=== PATIENT | male | born 1960 | race Caucasian/White ===

== ENCOUNTER 2017-03-19 16:30 | Inpatient (IN) | payer MEDICARE ==
--- NOTE | ~2017-03-19 | CN ---
Consultation Report [facility] [address] [place]. [address] NAME: GLADIS LENZ : 58 STATUS : ADM IN [facility]#: [id number] AGE: 56 ADM/REG DATE : 03/19/17 MR#: [id number] REPORT SERV DATE: 03/20/17 DICTATED BY: MO MARES DATE: 03/19/17 REPORT STATUS : Draft TRANSCRIBED BY: MODL DATE: 03/19/17 DATE OF CONSULTATION: Mr. Gladis Lenz is a 56-year-old male, who is referred for followup of coronary artery disease. 1. PCP: Levy Fonseca M.D. 2. Vascular surgeon: Chris Montalvo M.D. 3. Cementing Machine Operator: Perry Villanueva M.D., F.C.C.P. 4. Mechanist: Unknown. HISTORY OF PRESENT ILLNESS: Mr. Lenz has had lower extremity edema for approximately three months and it has gradually crescendoed, finally bringing him into the emergency room where he was noted to have ischemic left lower extremity and is admitted for treatment by Dr. Montalvo. REVIEW OF SYSTEMS: Difficult to obtain as presently he is somewhat sedated from pain medication for the lower extremity. He said he has had no chest pain, but he is very inactive. He has had no recent PND, palpitations, syncope, or presyncope. Rest appears to be negative. PAST MEDICAL HISTORY: 1. Cirrhosis type C with portocaval shunt in the past. 2. COPD with cigarette smoking, just recently discontinued. 3. Peripheral vascular disease, status post above the ankle amputation of the right lower extremity. 4. Coronary artery disease with history of coronary bypass grafting at [facility]. 5. Hyperlipidemia, not on statin due to liver disease. SOCIAL HISTORY: He is disabled. His activity level is minimal. FAMILY HISTORY: Negative. PHYSICAL EXAMINATION: GENERAL: He is somewhat sedated due to pain medication. VITAL SIGNS: Blood pressure currently is 141/84. He has normal respiratory effort. His temperature is 98. LUNGS: His respiration is unlabored. Bilateral expansion of chest is seen. Expiratory wheezes are heard diffusely. HEART: Precordium is quiet. S1 and S2 are normal. ABDOMEN: Soft. EXTREMITIES: Deferred, but above knee amputation is noted on the right. LABORATORY EVALUATION: EKG and echo are pending. Troponin is less than 0.02. Potassium is adequate at 3.9. Renal function normal at 0.93. Consultation Report [facility] [address] [place]. [address] NAME: GLADIS LENZ : 58 STATUS : ADM IN PAT#: [id number] AGE: 56 ADM/REG DATE : 03/19/17 MR#: [id number] REPORT SERV DATE: 03/20/17 DICTATED BY: MO MARES DATE: 03/19/17 REPORT STATUS : Draft TRANSCRIBED BY: NICOLA DATE: 03/19/17 ASSESSMENT: At this time, we will begin a standard medical therapy starting with aspirin and beta carrol and await input from Dr. Montalvo as the attended treatment for the lower extremity ischemia. SHAYAN/NICOLA Mo Mares M.D. / [id number] CC: Marni Herrera M.D.
--- NOTE | ~2017-03-19 | OP ---
Record Of Operation [facility] [address] [place]. [address] NAME: GLADIS ELNZ : 58 STATUS : ADM IN PAT#: [id number] AGE: 56 ADM/REG DATE : 03/19/17 MR#: [id number] REPORT SERV DATE: 03/21/17 DICTATED BY: CHRIS MONTALVO DATE: 03/20/17 REPORT STATUS : Draft TRANSCRIBED BY: MODTracie DATE: 03/20/17 DATE OF PROCEDURE: 03/20/2017 PREPROCEDURE DIAGNOSES: Profound ischemia, left lower extremity with failed left femoral to tibial bypass, polytetrafluoroethylene. POSTOPERATIVE DIAGNOSES: Profound ischemia, left lower extremity with failed left femoral to tibial bypass, polytetrafluoroethylene. PROCEDURE PERFORMED: Revision of left femoral-tibial bypass with thrombectomy and a distal interposition reversed left lesser saphenous vein bypass to the mid peroneal artery. ANESTHESIA: General. COMPLICATIONS: None. INDICATION FOR PROCEDURE: Secondary to this a very pleasant 56-year-old gentleman status post a failed left femoral-tibial bypass with PTFE, with a known right above knee amputation, presenting for re-evaluation and possible limb salvage with revisionary surgery. Risks and benefits discussed including bleeding, clotting, a cardiovascular event. Consent was given. DETAILS OF PROCEDURE: The patient was brought to the operating room, placed in supine position, prepped and draped in routine sterile fashion with attention to the left leg. An incision was then made in the leg proceeding down through the skin, subcutaneous tissues from the knee to the mid calf. Dissection proceeded to the former graft which was noted to be twisted at the knee level. This had almost 90-degree twist within the graft material itself. The artery was then followed down to the what appeared to be the tibioperoneal trunk, which was then followed to the peroneal artery. There was significant amount of scarring atherosclerotic inflammatory process throughout this entire region leading to significant issues with venous bleeding requiring a tourniquet for approximately 45 minutes. The venous tributaries were controlled with ligation and cautery and multiple clips. The peroneal artery was then dissected free and this was a very pliable artery at the mid peroneal level. Next, dissection proceeded in the subcutaneous plane all way down to the lesser saphenous vein, which was found to be approximately 5 mm in diameter. This was then followed along the length of the calf and a 15-inch segment was then resected and brought on to the field for preparation for bypass. All branches were ligated individually and repaired. Next, the graft was then transected at the knee level, above the level of the kink. The distal graft was oversewn. A thrombectomy was then performed with a Duong catheter. Multiple passes of the inflation device was then brought down, and after multiple passes and additional heparin, the graft was then free with pulsatile flow. The vein bypass was then attached to the graft in apxb-ht-gdch fashion and then the vein was then brought down to the peroneal artery. The artery was opened for 12 mm and the vein bypass was then attached in end-to-side fashion with a prolene. Flow was re-established. There was excellent Doppler signals into the foot with a significant improvement of perfusion to the foot. This bleeding was then controlled with Surgicel and Surgiflo Record Of Operation [address] [address] NAME: GLADIS LENZ : 58 STATUS : ADM IN [facility]#: [id number] AGE: 56 ADM/REG DATE : 03/19/17 MR#: [id number] REPORT SERV DATE: 03/21/17 DICTATED BY: CHRIS MONTALVO DATE: 03/20/17 REPORT STATUS : Draft TRANSCRIBED BY: NICOLA DATE: 03/20/17 thrombin medication. The deep layers were then closed with Vicryl and then mitchell for the skin secondary to the ooze and bleeding of the case. Dressings were applied. The patient had excellent perfusion enough to the foot at the end of the procedure. CL/NICOLA Chris Montalvo M.D. / [id number] CC: Chris Montalvo M.D.
--- NOTE | ~2017-03-19 | IDS ---
Interim Discharge Summary [facility] [address] [place]. [address] NAME: GLADIS LENZ : 58 STATUS : ADM IN PAT#: [id number] AGE: 56 ADM/REG DATE : 03/19/17 MR#: [id number] REPORT SERV DATE: 03/23/17 DICTATED BY: JAY BRICEÑO DATE: 03/23/17 REPORT STATUS : Draft TRANSCRIBED BY: MODL DATE: 03/23/17 ADMISSION DATE: 03/19/2017 DISCHARGE DATE: REASON FOR ADMISSION: This is a 56-year-old male who had presented with a painful left ischemic leg and was admitted for that left ischemic leg and had a history of previous femoral-popliteal bypass as well as a right wflij-nda-arzh amputation for his related peripheral arterial disease. INTERIM DISCHARGE DIAGNOSES: 1. Left ischemic leg, status post fem-tib revision. 2. Peripheral arterial disease. 3. Coronary artery disease with a history of a CABG. 4. Hepatitis C. 5. Chronic obstructive pulmonary disease. 6. Acute blood loss anemia, status post vascular procedure. 7. Thrombocytopenia. HOSPITAL COURSE: The patient was admitted for left ischemic leg. Left ischemic leg. The patient had a consult to Vascular Surgery. Dr. Montalvo saw the patient, and he would perform a revision of the left femoral-tibial bypass with thrombectomy and a distal interposition reverse left lesser saphenous vein bypass to the mid peroneal artery. The patient went to ICU after procedure. Initially, did well after procedure and did experience some acute blood loss anemia after procedure. His hemoglobin preop was 12.3, and it would drop to 7.3 postop. The patient received 2 units of packed red blood cells and today his hemoglobin is 9.0. The patient is dependent on narcotic pain medicine, and we have been weaning him off IV Dilaudid to oral Percocet. The patient was moved out to telemetry floor today. Vital signs are stable. We will continue q.12 hours H and H's for the next 48 hours. Of note, also patient had postop thrombocytopenia. On admission, platelets were 130,000. After procedure, they dropped to 65,000 and today are 68,000. There is a HIT panel pending. CURRENT MEDICATIONS: 1. Aspirin 325 mg p.o. daily. 2. Plavix 75 mg p.o. daily. 3. Gabapentin 600 mg p.o. q.6 hours. 4. DuoNeb 3 mL inhaled q.6 hours. 5. Metoprolol 12.5 mg p.o. b.i.d. 6. Protonix 40 mg p.o. daily. 7. OxyContin 10 mg p.o. b.i.d. CURRENT PLAN: The patient was seen by Physical Therapy today and was determined to not need [facility] rehab. They deemed him appropriate for home with home health. The patient will need monitoring of his H and H for at least 24 hours more and his platelet levels. The patient's care to be assumed by Dr. Rivers this week. Interim Discharge Summary [address] [place]. [address] NAME: GLADIS LENZ : 58 STATUS : ADM IN [facility]#: [id number] AGE: 56 ADM/REG DATE : 03/19/17 MR#: [id number] REPORT SERV DATE: 03/23/17 DICTATED BY: JAY BRICEÑO DATE: 03/23/17 REPORT STATUS : Draft TRANSCRIBED BY: NICOLA DATE: 03/23/17 TDR/NICOLA Jay Briceño APN / [id number] CC: Marni Bajwa M.D. Christopher Lesar, M.D.
--- NOTE | ~2017-03-19 | DS ---
Discharge Summary [facility] [address] [place]. [address] NAME: GLADIS LENZ : 58 STATUS : DIS IN PAT#: [id number] AGE: 56 ADM/REG DATE : 03/19/17 MR#: [id number] REPORT SERV DATE: 03/27/17 DICTATED BY: BETSEY SANCHEZ DATE: 03/25/17 REPORT STATUS : Draft TRANSCRIBED BY: MODL DATE: 03/25/17 ADMISSION DATE: 03/19/2017 DISCHARGE DATE: DIAGNOSES OF DISCHARGE: 1. Left ischemic leg, status post femoral-tibial revision that has been performed on 03/21/[address] Chris Montalvo. 2. Peripheral arterial disease. 3. History of coronary artery disease with prior coronary artery bypass graft. 4. History of hepatitis C. 5. Chronic obstructive pulmonary disease. 6. Acute blood loss anemia, status post two units of packed red blood cells post vascular procedure, stable. 7. Chronic thrombocytopenia. CONSULTANTS ON THE CASE: Dr. Chris Montalvo, Vascular and Dr. Mo Mares, Cardiology. PROCEDURES DONE DURING THIS HOSPITALIZATION: Include revision of the left femoral-tibial bypass with thrombectomy and a distal interposition reverse of the left lesser saphenous vein bypass to the mid peroneal artery. Other test done during hospitalization include a 2D echo on 03/20/2017, showing left ventricular systolic function of 54, mild diastolic dysfunction with mild left atrial dilation, intact right ventricular systolic function, no significant valvular dysfunction that could be identified. Chest x-ray, portable, on 03/12/2017, show a normal chest x-ray. No consolidation. Duplex arterial ultrasound on 03/19/2017, has shown occluded left femoral-popliteal bypass graft, normal inflow involving the left common femoral artery. HOSPITAL COURSE: This is a very pleasant 56-year-old gentleman, patient of Dr. Levy Fonseca, his primary care provider, who has been presented to [facility] with painful left ischemic leg. For further details, please see history and physical exam of Dr. Ceasar Yañez. The patient has been admitted to Hospitalist Service with an ischemic left leg. He does have a prior history of femoral-popliteal bypass as well as a right qenst-uus-tgat amputation due to his peripheral vascular disease. The patient was seen by Dr. Montalvo, who performed a revision of the left femoral-tibial bypass with thrombectomy and reverse of the left lesser saphenous vein bypass to the mid peroneal artery. The patient went to the ICU after the procedure. He has been transferred to monitored bed. He did experience some acute blood loss anemia. He has been transfused two units of packed red blood cells, and his H and H remained stable. He had some thrombocytopenia postprocedure that has been improved, and HIT panel ordered on 03/22/2017 has been negative. He has been weaned off the IV medication and changed to oral medication by the vascular surgeon, and started to work with Physical Therapy and recommendation was to go home with Home Health, Home PT as well as Wound Care. On 03/25/2017, the patient has been ready for discharge from Vascular standpoint. It is important to note that the patient has been seen during this hospitalization also by Cardiology due to history of coronary artery disease. He has been cleared from Cardiology standpoint, and he has been placed on low doses of beta-carrol, but he could not tolerate due to the blood pressure. So, again on 03/25/2017, the patient has Discharge Summary [facility] [id number] [facility] [place]. [address] NAME: GLADIS LENZ : 58 STATUS : DIS IN PAT#: [id number] AGE: 56 ADM/REG DATE : 03/19/17 MR#: [id number] REPORT SERV DATE: 03/27/17 DICTATED BY: BETSEY SANCHEZ DATE: 03/25/17 REPORT STATUS : Draft TRANSCRIBED BY: NICOLA DATE: 03/25/17 been ready for discharge. MEDICATIONS AT DISCHARGE: Include Plavix 75 mg p.o. daily, gabapentin 600 every six hours, also Prilosec 40 mg p.o. daily, Roxicodone 10 mg p.o. b.i.d., also Eliquis 5 mg p.o. b.i.d., and Percocet 5/325 one tablet p.o. q.4 to 6 hours p.r.n. pain. The patient has been advised to follow up with his primary care provider, Dr. Levy Fonseca in one week after discharge as well as follow up with Dr. Montalvo, Vascular in two to four weeks after discharge. The patient will go home with Home Health as well as PT and Wound Care. This has been discussed extensively with the patient. All the questions have been answered in full. ADDENDUM The patient has been re-evaluated by PT during this hospitalization and recommendation was for the patient to go to inpatient rehab. The patient has been evaluated by [facility] and approved to be transferred to inpatient rehab at [facility] on 03/26/2017. The patient has been advised to follow up with his primary care provider in one week after discharge as well as Dr. Montalvo, the patient's vascular doctor in two to four weeks after discharge. The patient is going to be discharged to [facility]. CF/MODL Betsey Sanchez M.D. / [id number] / [id number] CC: Marni Argueta M.D. Christopher Lesar, M.D.
--- NOTE | ~2017-03-19 | HP ---
History And Physical [address] [place]. [address] NAME: GLADIS LENZ : 58 STATUS : ADM IN [facility]#: [id number] AGE: 56 ADM/REG DATE : 03/19/17 MR#: [id number] REPORT SERV DATE: 03/19/17 DICTATED BY: CHINMAY AARON DATE: 03/19/17 REPORT STATUS : Draft TRANSCRIBED BY: MODL DATE: 03/19/17 DATE OF ADMISSION: 03/19/2017 CHIEF COMPLAINT: A 56-year-old male presenting with painful left ischemic leg. HISTORY OF PRESENT ILLNESS: The patient's history was obtained through careful interview with the patient, coupled with review of [facility] and [facility] medical records. For about a year now, the patient has been having progressive left foot pain and discoloration, but over the last few weeks, it has become so severe that he cannot even bear weight on that leg. He describes left foot pain radiating up into the ankle. He describes it as many different kinds of pain, burning, throbbing, crushing, "twitching" in quality, 10/10 severity, almost constantly. He has had no chest pain. No shortness of breath. No fevers or chills. No reflux symptoms. He has had left leg arterial insufficiency ulcers for about a year and a half that will not heal. REVIEW OF SYSTEMS: Otherwise, a 14-point review of systems was obtained and was negative. PAST MEDICAL HISTORY: 1. Hepatitis C cirrhosis. 2. Peripheral arterial disease, status post right vjqzn-dno-wddc amputation; history of femoropopliteal bypass surgery. 3. GI bleed with portal gastropathy and esophageal varices, seen by Dr. Ballard. 4. Splenomegaly. 5. COPD. 6. Anemia. 7. Coronary artery disease, status post CABG. 8. Cholelithiasis. PAST SURGICAL HISTORY: 1. Femoropopliteal bypass surgery. 2. Right xeknq-hhz-cdco amputation for peripheral arterial disease. 3. Hernia surgery. 4. Right finger amputation. 5. CABG around 2007. ALLERGIES: IBUPROFEN. SOCIAL HISTORY: Quit smoking about two months ago. Quit drinking beer about 10 years ago. History And Physical [address] [address] NAME: GLADIS LENZ : 58 STATUS : ADM IN PAT#: [id number] AGE: 56 ADM/REG DATE : 03/19/17 MR#: [id number] REPORT SERV DATE: 03/19/17 DICTATED BY: CHINMAY AARON DATE: 03/19/17 REPORT STATUS : Draft TRANSCRIBED BY: NICOLA DATE: 03/19/17 He lives with his sister. He is on disability. He is , lives in [place], [place]. He has one child, who lives locally. FAMILY HISTORY: Heart disease and cancer. CURRENT MEDICATIONS: Include Plavix 75 mg p.o. daily, Neurontin 600 mg p.o. four times a day, Prilosec 40 mg p.o. daily, and Roxicodone 10 mg p.o. b.i.d. scheduled. PHYSICAL EXAMINATION: VITAL SIGNS: Temperature 98.0, pulse 115, blood pressure 141/84, respiratory rate 20, and O2 saturation 95% on room air. GENERAL: A pleasant, cooperative male, but he describes distress and discomfort from his left leg pain. HEENT: Pupils are equal, round, and reactive to light. No conjunctival pallor. No scleral icterus. Nares are patent. Oropharynx is clear of obstruction. Moist mucous membranes. NECK: Trachea midline. No thyromegaly. LYMPH: No cervical lymphadenopathy. No supraclavicular lymphadenopathy. No inguinal lymphadenopathy. RESPIRATORY: Clear to auscultation at bases. No wheezes, rales, or rhonchi. Normal respiratory effort. CARDIOVASCULAR: Tachycardic. Regular rhythm. No murmurs, rubs, or gallops. No current extremity edema is appreciated. ABDOMEN: Soft, nontender, and nondistended. Normal bowel sounds auscultated throughout. No hepatosplenomegaly. DERMATOLOGICAL: The patient's left lower extremity shows cyanotic changes, a cold limb that is excruciatingly painful to any kind of palpation as the patient describes it. I do not appreciate any dorsal foot pulse. There are also arterial insufficiency ulcers on the dorsum of the patient's left foot along the gustafson, but without any surrounding erythema, heat, swelling, tenderness, or purulent drainage. PSYCHIATRIC: Flat affect, irritable, and discouraged mood. Alert and oriented x3. LABORATORY DATA: White blood cell count 4.3, hemoglobin 12, hematocrit 40, and platelets 130. Sodium 142, potassium 3.9, chloride 104, bicarb 33, BUN 14, creatinine 0.93, glucose 110, and CPK 126. Troponin negative. Alkaline phosphatase 180 and lactic acid 1.4. STUDIES: An arterial Doppler ultrasound of left lower extremity shows totally occluded femoropopliteal bypass and occluded arteries throughout the leg. ASSESSMENT AND PLAN: 1. Left leg ischemia. Place on heparin drip IV. Consult Dr. Montalvo, Vascular Surgeon. 2. Coronary artery disease, history of coronary artery bypass graft around 2007. No current chest pain. No shortness of breath. Check a nuclear cardiac stress test. Check an echocardiogram. Obtain a Cardiology consult to question possible further cardiac clearance for surgery? 3. Hepatitis C cirrhosis. 4. Chronic obstructive pulmonary disease. Quit smoking about two months ago. Place on Duo nebulizers. History And Physical [address] [address] NAME: GLADIS LENZ : 58 STATUS : ADM IN [facility]#: [id number] AGE: 56 ADM/REG DATE : 03/19/17 MR#: [id number] REPORT SERV DATE: 03/19/17 DICTATED BY: CHINMAY AARON DATE: 03/19/17 REPORT STATUS : Draft TRANSCRIBED BY: NICOLA DATE: 03/19/17 KPL/NICOLA Chinmay Aaron M.D. / [id number] CC: Marni Herrera M.D. Christopher Lesar, M.D.
[2017-03-19 16:22] LABS: BASOPHILS 0.2 %; BASOPHILS ABSOLUTE 0.01 10/3/uL (0.0-0.16); EOSINOPHILS 1.6 %; EOSINOPHILS ABSOLUTE 0.07 10/3/uL (0.0-0.53); ER CBC TAT 0 Hrs 12 Mins; HEMATOCRIT 39.7 % (40.0-51.0); HEMOGLOBIN 12.3 g/dL (13.6-17.8); LYMPHOCYTES 18.3 %; LYMPHOCYTES ABSOLUTE 0.78 10/3/uL (0.67-4.30); MANUAL DIFF NO %; MEAN CORPUSCULAR HEMOGLOB 24.5 pg (26.0-34.0); MEAN CORPUSCULAR VOLUME 79.1 fL (80-100); MEAN PLATELET VOLUME 10.4 fL (9.2-13.0); MONOCYTES 10.1 %; MONOCYTES ABSOLUTE 0.43 10/3/uL (0.21-1.20); NEUTROPHILS 69.8 %; NEUTROPHILS ABSOLUTE 2.97 10/3/uL (2.02-8.40); PLATELET COUNT 130 10/3/uL (150-400); RBC DISTRIBUTION WIDTH 17.5 % (12.0-16.0); RED CELL COUNT 5.02 10/6/uL (4.7-6.1); WHITE BLOOD CELLS 4.3 10/3/uL (4.5-10.5)
[~2017-03-19 16:30] MED LIST: ASABAYER PO; COUMADIN7.5 MG PO; NEUR800 PO; OXYCOD PO; OXYCON10; PCET PO; PLAVIX PO; PRILOSEC40 MG
[2017-03-19 16:31] LABS: ALBUMIN 3.8 G/DL (3.5-5.0); BUN (BLOOD UREA NITROGEN) 17 MG/DL (6-23); CALCIUM, SERUM 9.6 MG/DL (8.5-10.4); CHLORIDE, SERUM 104 MMOL/L (96-112); CO2 (CARBON DIOXIDE) 33 MMOL/L (24-34); CREATININE 0.93 MG/DL (0.70-1.30); GFR AFRICAN AMERICAN 105 ML/MIN (>=60); GFR NON AFRICAN AMERICAN 91 ML/MIN (>=60); GLUCOSE, SERUM 110 MG/DL (60-99); POTASSIUM, SERUM 3.9 MMOL/L (3.5-5.3); SGOT(AST) 20 U/L (5-40); SGPT(ALT) 15 U/L (5-65); SODIUM, SERUM 142 MMOL/L (135-148); TOTAL BILIRUBIN 0.5 MG/DL (0-1.2); TOTAL PROTEIN 8.8 G/DL (6.0-8.5); TROPONIN I <0.02 NG/ML (<0.05)
[2017-03-19 16:32] LABS: A/G RATIO 0.8 (0.7-1.9); ALKALINE PHOSPHATASE 180 U/L (45-117)
[2017-03-19 16:55] LABS: CPK 126 U/L (0-200)
[2017-03-19 17:08] LABS: MICROCYTES 1+ (5-10/OIF) (0-5/OIF); PLATELET ESTIMATE SLT DEC (ADEQUATE)
[2017-03-19] MEDS ORDERED: PRILOSEC40 MG PO (18:15)
[2017-03-19] MEDS ORDERED: NEUR600 PO (18:15)
[2017-03-19] MEDS ORDERED: PLAVIX PO (18:15)
[2017-03-19] MEDS ORDERED: OXYCOD PO (18:17)
[2017-03-20 05:38] LABS: BASOPHILS 0.3 %; BASOPHILS ABSOLUTE 0.01 10/3/uL (0.0-0.16); EOSINOPHILS 1.5 %; EOSINOPHILS ABSOLUTE 0.05 10/3/uL (0.0-0.53); HEMOGLOBIN 10.8 g/dL (13.6-17.8); INTERNATIONAL NORMAL RATI 1.2 UNITS (-); LYMPHOCYTES 35.1 %; LYMPHOCYTES ABSOLUTE 1.17 10/3/uL (0.67-4.30); MEAN CORPUS HGB CONC 30.4 g/dL (32.0-36.0); MEAN CORPUSCULAR HEMOGLOB 24.5 pg (26.0-34.0); MEAN CORPUSCULAR VOLUME 80.7 fL (80-100); MEAN PLATELET VOLUME 10.9 fL (9.2-13.0); MONOCYTES 12.6 %; MONOCYTES ABSOLUTE 0.42 10/3/uL (0.21-1.20); NEUTROPHILS 50.5 %; NEUTROPHILS ABSOLUTE 1.68 10/3/uL (2.02-8.40); PLATELET COUNT 124 10/3/uL (150-400); PROTIME (NOT ORD) 15.1 SEC (12.0-14.5); RBC DISTRIBUTION WIDTH 17.5 % (12.0-16.0); WHITE BLOOD CELLS 3.3 10/3/uL (4.5-10.5)
[2017-03-20 05:40] LABS: HEMATOCRIT 35.5 % (40.0-51.0); MANUAL DIFF NO %
[2017-03-20 05:44] LABS: A/G RATIO 0.7 (0.7-1.9); ALBUMIN 3.1 G/DL (3.5-5.0); BUN (BLOOD UREA NITROGEN) 15 MG/DL (6-23); CALCIUM, SERUM 8.9 MG/DL (8.5-10.4); CHLORIDE, SERUM 110 MMOL/L (96-112); CREATININE 0.79 MG/DL (0.70-1.30); GFR AFRICAN AMERICAN 116 ML/MIN (>=60); GFR NON AFRICAN AMERICAN 100 ML/MIN (>=60); GLOBULIN 4.2 G/DL (2.5-4.1); GLUCOSE, SERUM 95 MG/DL (60-99); SGOT(AST) 21 U/L (5-40); SGPT(ALT) 16 U/L (5-65); SODIUM, SERUM 146 MMOL/L (135-148); TOTAL BILIRUBIN 0.3 MG/DL (0-1.2); TOTAL PROTEIN 7.3 G/DL (6.0-8.5); TROPONIN I <0.02 NG/ML (<0.05); ULTRASENSITIVE TSH 0.542 MCIU/ML (0.358-3.740)
[2017-03-20 05:45] LABS: PARTIAL THROMBO TIME 145.8 SEC (22.5-37.2)
[2017-03-20 06:16] LABS: ALKALINE PHOSPHATASE 154 U/L (45-117); CO2 (CARBON DIOXIDE) 28 MMOL/L (24-34)
[2017-03-20 06:27] LABS: ANISOCYTOSIS 1+ (5-10/OIF) (0-5/OIF); PLATELET ESTIMATE SLT DEC (ADEQUATE); RBC MORPHOLOGY ABN (NORMAL)
[2017-03-20 06:48] LABS: PROCALCITONIN 0.11 ng/mL (<0.5)
[2017-03-20 21:03] LABS: BASOPHILS 0.4 %; BASOPHILS ABSOLUTE 0.02 10/3/uL (0.0-0.16); EOSINOPHILS 1.6 %; EOSINOPHILS ABSOLUTE 0.08 10/3/uL (0.0-0.53); HEMOGLOBIN 9.5 g/dL (13.6-17.8); IMMATURE GRANULOCYTES 0.2 %; IMMATURE GRANULOCYTES ABSOLUTE 0.01 10/3/uL (0.0-0.11); LYMPHOCYTES ABSOLUTE 0.51 10/3/uL (0.67-4.30); MEAN CORPUSCULAR HEMOGLOB 25.5 pg (26.0-34.0); MEAN CORPUSCULAR VOLUME 79.8 fL (80-100); MEAN PLATELET VOLUME 9.9 fL (9.2-13.0); MONOCYTES 10.9 %; MONOCYTES ABSOLUTE 0.56 10/3/uL (0.21-1.20); NEUTROPHILS 76.9 %; NEUTROPHILS ABSOLUTE 3.94 10/3/uL (2.02-8.40); PLATELET COUNT 109 10/3/uL (150-400); RBC DISTRIBUTION WIDTH 16.1 % (12.0-16.0); RED CELL COUNT 3.72 10/6/uL (4.7-6.1)
[2017-03-20 21:04] LABS: HEMATOCRIT 29.7 % (40.0-51.0); MANUAL DIFF NO %; WHITE BLOOD CELLS 5.1 10/3/uL (4.5-10.5)
[2017-03-20 21:17] LABS: A/G RATIO 0.8 (0.7-1.9); ALBUMIN 2.6 G/DL (3.5-5.0); ALKALINE PHOSPHATASE 119 U/L (45-117); BUN (BLOOD UREA NITROGEN) 13 MG/DL (6-23); CALCIUM, SERUM 8.9 MG/DL (8.5-10.4); CHLORIDE, SERUM 109 MMOL/L (96-112); CO2 (CARBON DIOXIDE) 27 MMOL/L (24-34); CREATININE 0.68 MG/DL (0.70-1.30); GFR AFRICAN AMERICAN 123 ML/MIN (>=60); GFR NON AFRICAN AMERICAN 106 ML/MIN (>=60); GLOBULIN 3.1 G/DL (2.5-4.1); GLUCOSE, SERUM 99 MG/DL (60-99); PHOSPHORUS, SERUM 3.6 MG/DL (2.5-4.5); POTASSIUM, SERUM 3.9 MMOL/L (3.5-5.3); SGOT(AST) 16 U/L (5-40); SGPT(ALT) 10 U/L (5-65); SODIUM, SERUM 142 MMOL/L (135-148); TOTAL BILIRUBIN 0.6 MG/DL (0-1.2); TOTAL PROTEIN 5.7 G/DL (6.0-8.5)
[2017-03-21 04:02] LABS: BASOPHILS 0.1 %; BASOPHILS ABSOLUTE 0.01 10/3/uL (0.0-0.16); EOSINOPHILS 0.1 %; EOSINOPHILS ABSOLUTE 0.01 10/3/uL (0.0-0.53); HEMATOCRIT 29.4 % (40.0-51.0); HEMOGLOBIN 9.4 g/dL (13.6-17.8); IMMATURE GRANULOCYTES 0.3 %; IMMATURE GRANULOCYTES ABSOLUTE 0.02 10/3/uL (0.0-0.11); LYMPHOCYTES 5.2 %; LYMPHOCYTES ABSOLUTE 0.36 10/3/uL (0.67-4.30); MANUAL DIFF NO %; MEAN CORPUSCULAR HEMOGLOB 25.5 pg (26.0-34.0); MEAN CORPUSCULAR VOLUME 79.9 fL (80-100); MEAN PLATELET VOLUME 10.8 fL (9.2-13.0); MONOCYTES 9.2 %; MONOCYTES ABSOLUTE 0.64 10/3/uL (0.21-1.20); NEUTROPHILS 85.1 %; NEUTROPHILS ABSOLUTE 5.92 10/3/uL (2.02-8.40); PLATELET COUNT 124 10/3/uL (150-400); RBC DISTRIBUTION WIDTH 16.2 % (12.0-16.0); RED CELL COUNT 3.68 10/6/uL (4.7-6.1)
[2017-03-21 04:09] LABS: BUN (BLOOD UREA NITROGEN) 12 MG/DL (6-23); CALCIUM, SERUM 8.6 MG/DL (8.5-10.4); CHLORIDE, SERUM 109 MMOL/L (96-112); CO2 (CARBON DIOXIDE) 27 MMOL/L (24-34); CREATININE 0.79 MG/DL (0.70-1.30); GFR AFRICAN AMERICAN 116 ML/MIN (>=60); GFR NON AFRICAN AMERICAN 100 ML/MIN (>=60); POTASSIUM, SERUM 4.3 MMOL/L (3.5-5.3); SODIUM, SERUM 144 MMOL/L (135-148)
[2017-03-21 04:10] LABS: GLUCOSE, SERUM 119 MG/DL (60-99)
[2017-03-22 03:36] LABS: BASOPHILS 0.4 %; BASOPHILS ABSOLUTE 0.02 10/3/uL (0.0-0.16); EOSINOPHILS ABSOLUTE 0.05 10/3/uL (0.0-0.53); IMMATURE GRANULOCYTES 0.8 %; IMMATURE GRANULOCYTES ABSOLUTE 0.04 10/3/uL (0.0-0.11); LYMPHOCYTES 13.3 %; LYMPHOCYTES ABSOLUTE 0.69 10/3/uL (0.67-4.30); MEAN CORPUS HGB CONC 31.7 g/dL (32.0-36.0); MEAN CORPUSCULAR HEMOGLOB 25.3 pg (26.0-34.0); MEAN CORPUSCULAR VOLUME 79.6 fL (80-100); MEAN PLATELET VOLUME 10.3 fL (9.2-13.0); MONOCYTES 14.9 %; MONOCYTES ABSOLUTE 0.77 10/3/uL (0.21-1.20); NEUTROPHILS 69.6 %; NEUTROPHILS ABSOLUTE 3.61 10/3/uL (2.02-8.40); RBC DISTRIBUTION WIDTH 16.8 % (12.0-16.0); WHITE BLOOD CELLS 5.2 10/3/uL (4.5-10.5)
[2017-03-22 03:37] LABS: HEMOGLOBIN 7.3 g/dL (13.6-17.8); RED CELL COUNT 2.89 10/6/uL (4.7-6.1)
[2017-03-22 03:38] LABS: MANUAL DIFF NO %; PLATELET COUNT 65 10/3/uL (150-400)
[2017-03-22 03:53] LABS: BUN (BLOOD UREA NITROGEN) 9 MG/DL (6-23); CALCIUM, SERUM 8.4 MG/DL (8.5-10.4); CHLORIDE, SERUM 108 MMOL/L (96-112); CO2 (CARBON DIOXIDE) 27 MMOL/L (24-34); CREATININE 0.71 MG/DL (0.70-1.30); GFR AFRICAN AMERICAN 121 ML/MIN (>=60); GFR NON AFRICAN AMERICAN 104 ML/MIN (>=60); GLUCOSE, SERUM 135 MG/DL (60-99); POTASSIUM, SERUM 4.1 MMOL/L (3.5-5.3); SODIUM, SERUM 143 MMOL/L (135-148)
[2017-03-22 04:00] LABS: ANISOCYTOSIS 1+ (5-10/OIF) (0-5/OIF); PLATELET ESTIMATE DEC (ADEQUATE); RBC MORPHOLOGY ABN (NORMAL)
[2017-03-22 18:20] LABS: BASOPHILS 0.2 %; BASOPHILS ABSOLUTE 0.01 10/3/uL (0.0-0.16); EOSINOPHILS 2.3 %; EOSINOPHILS ABSOLUTE 0.14 10/3/uL (0.0-0.53); IMMATURE GRANULOCYTES 0.3 %; IMMATURE GRANULOCYTES ABSOLUTE 0.02 10/3/uL (0.0-0.11); LYMPHOCYTES 15.5 %; LYMPHOCYTES ABSOLUTE 0.96 10/3/uL (0.67-4.30); MEAN CORPUS HGB CONC 32.3 g/dL (32.0-36.0); MEAN CORPUSCULAR HEMOGLOB 26.8 pg (26.0-34.0); MEAN PLATELET VOLUME 10.5 fL (9.2-13.0); MONOCYTES 12.7 %; MONOCYTES ABSOLUTE 0.79 10/3/uL (0.21-1.20); NEUTROPHILS ABSOLUTE 4.29 10/3/uL (2.02-8.40); PLATELET COUNT 66 10/3/uL (150-400); WHITE BLOOD CELLS 6.2 10/3/uL (4.5-10.5)
[2017-03-22 18:21] LABS: MANUAL DIFF NO %; MEAN CORPUSCULAR VOLUME 83.1 fL (80-100); RED CELL COUNT 3.73 10/6/uL (4.7-6.1)
[2017-03-22 18:32] LABS: BUN (BLOOD UREA NITROGEN) 10 MG/DL (6-23); CALCIUM, SERUM 8.8 MG/DL (8.5-10.4); CHLORIDE, SERUM 103 MMOL/L (96-112); CO2 (CARBON DIOXIDE) 29 MMOL/L (24-34); GFR AFRICAN AMERICAN 115 ML/MIN (>=60); GFR NON AFRICAN AMERICAN 99 ML/MIN (>=60); GLUCOSE, SERUM 138 MG/DL (60-99); POTASSIUM, SERUM 4.3 MMOL/L (3.5-5.3); SODIUM, SERUM 139 MMOL/L (135-148)
[2017-03-22 18:56] LABS: ANISOCYTOSIS 1+ (5-10/OIF) (0-5/OIF); PLATELET ESTIMATE DEC (ADEQUATE)
[2017-03-22 19:00] LABS: BURR CELLS 1+ (3-10/OIF) (0-2/OIF); POLYCHROMASIA 1+ (2-5/OIF) (0-1/OIF); TEARDROP SHAPED RBCS FEW (3-10/OIF)
[2017-03-22 19:01] LABS: HELMET CELLS FEW (3-10/OIF)
[2017-03-22 19:02] LABS: OVALOCYTES 1+ (3-10/OIF) (0-2/OIF)
[2017-03-23 03:49] LABS: BASOPHILS 0.4 %; BASOPHILS ABSOLUTE 0.02 10/3/uL (0.0-0.16); EOSINOPHILS 3.7 %; EOSINOPHILS ABSOLUTE 0.17 10/3/uL (0.0-0.53); HEMATOCRIT 27.3 % (40.0-51.0); IMMATURE GRANULOCYTES 0.4 %; IMMATURE GRANULOCYTES ABSOLUTE 0.02 10/3/uL (0.0-0.11); LYMPHOCYTES 20.3 %; LYMPHOCYTES ABSOLUTE 0.94 10/3/uL (0.67-4.30); MEAN CORPUSCULAR HEMOGLOB 27.2 pg (26.0-34.0); MEAN CORPUSCULAR VOLUME 82.5 fL (80-100); MEAN PLATELET VOLUME 10.8 fL (9.2-13.0); MONOCYTES 12.8 %; MONOCYTES ABSOLUTE 0.59 10/3/uL (0.21-1.20); NEUTROPHILS 62.4 %; NEUTROPHILS ABSOLUTE 2.88 10/3/uL (2.02-8.40); PLATELET COUNT 68 10/3/uL (150-400); RBC DISTRIBUTION WIDTH 16.7 % (12.0-16.0); RED CELL COUNT 3.31 10/6/uL (4.7-6.1); WHITE BLOOD CELLS 4.6 10/3/uL (4.5-10.5)
[2017-03-23 03:50] LABS: MANUAL DIFF NO %
[2017-03-23 03:53] LABS: FIBRINOGEN 440 MG/DL (230-462); INTERNATIONAL NORMAL RATI 1.3 UNITS (-); PARTIAL THROMBO TIME 34.1 SEC (22.5-37.2); PROTIME (NOT ORD) 16.5 SEC (12.0-14.5)
[2017-03-23 03:55] LABS: D-DIMER QUANTITATIVE 2.48 ug/mLFEU (< 0.50)
[2017-03-23 04:04] LABS: ALBUMIN 2.8 G/DL (3.5-5.0); BUN (BLOOD UREA NITROGEN) 9 MG/DL (6-23); CALCIUM, SERUM 8.6 MG/DL (8.5-10.4); CHLORIDE, SERUM 103 MMOL/L (96-112); CO2 (CARBON DIOXIDE) 31 MMOL/L (24-34); GFR AFRICAN AMERICAN 121 ML/MIN (>=60); GFR NON AFRICAN AMERICAN 105 ML/MIN (>=60); GLUCOSE, SERUM 124 MG/DL (60-99); POTASSIUM, SERUM 3.8 MMOL/L (3.5-5.3); SGOT(AST) 16 U/L (5-40); SGPT(ALT) 11 U/L (5-65); SODIUM, SERUM 140 MMOL/L (135-148); TOTAL BILIRUBIN 0.5 MG/DL (0-1.2); TOTAL PROTEIN 6.6 G/DL (6.0-8.5)
[2017-03-23 04:06] LABS: A/G RATIO 0.7 (0.7-1.9); ALKALINE PHOSPHATASE 98 U/L (45-117); GLOBULIN 3.8 G/DL (2.5-4.1)
[2017-03-23 04:44] LABS: ANISOCYTOSIS 1+ (5-10/OIF) (0-5/OIF); PLATELET ESTIMATE DEC (ADEQUATE); TEARDROP SHAPED RBCS FEW (3-10/OIF)
[2017-03-23 16:39] LABS: HEPARIN-INDUCED PLATELET AB NEGATIVE (NEGATIVE); HIT PATIENT O.D. 0.125 OD (0.000-0.299)
[2017-03-23 17:22] LABS: HEMATOCRIT 26.9 % (40.0-51.0); HEMOGLOBIN 8.7 g/dL (13.6-17.8)
[2017-03-24 05:59] LABS: BASOPHILS 0.4 %; BASOPHILS ABSOLUTE 0.02 10/3/uL (0.0-0.16); BUN (BLOOD UREA NITROGEN) 13 MG/DL (6-23); CALCIUM, SERUM 8.9 MG/DL (8.5-10.4); CHLORIDE, SERUM 101 MMOL/L (96-112); CO2 (CARBON DIOXIDE) 27 MMOL/L (24-34); CREATININE 0.67 MG/DL (0.70-1.30); EOSINOPHILS ABSOLUTE 0.22 10/3/uL (0.0-0.53); GFR AFRICAN AMERICAN 124 ML/MIN (>=60); GFR NON AFRICAN AMERICAN 107 ML/MIN (>=60); GLUCOSE, SERUM 122 MG/DL (60-99); HEMOGLOBIN 9.5 g/dL (13.6-17.8); IMMATURE GRANULOCYTES 0.2 %; IMMATURE GRANULOCYTES ABSOLUTE 0.01 10/3/uL (0.0-0.11); LYMPHOCYTES 18.4 %; MEAN CORPUS HGB CONC 32.1 g/dL (32.0-36.0); MEAN CORPUSCULAR HEMOGLOB 26.7 pg (26.0-34.0); MEAN CORPUSCULAR VOLUME 83.1 fL (80-100); MEAN PLATELET VOLUME 10.5 fL (9.2-13.0); MONOCYTES 15.6 %; MONOCYTES ABSOLUTE 0.85 10/3/uL (0.21-1.20); NEUTROPHILS 61.4 %; NEUTROPHILS ABSOLUTE 3.34 10/3/uL (2.02-8.40); PLATELET COUNT 80 10/3/uL (150-400); POTASSIUM, SERUM 4.2 MMOL/L (3.5-5.3); RBC DISTRIBUTION WIDTH 16.7 % (12.0-16.0); RED CELL COUNT 3.56 10/6/uL (4.7-6.1); SODIUM, SERUM 136 MMOL/L (135-148); WHITE BLOOD CELLS 5.4 10/3/uL (4.5-10.5)
[2017-03-24 06:04] LABS: HEMATOCRIT 29.6 % (40.0-51.0); MANUAL DIFF NO %
[2017-03-24 06:58] LABS: GIANT PLATELET RARE; PLATELET ESTIMATE DEC (ADEQUATE); RBC MORPHOLOGY NORM (NORMAL)
[2017-03-24 20:43] LABS: HEMATOCRIT 27.8 % (40.0-51.0); HEMOGLOBIN 8.9 g/dL (13.6-17.8)
[2017-03-25 05:30] LABS: BASOPHILS 0.5 %; BASOPHILS ABSOLUTE 0.02 10/3/uL (0.0-0.16); EOSINOPHILS 3.8 %; EOSINOPHILS ABSOLUTE 0.15 10/3/uL (0.0-0.53); HEMATOCRIT 27.4 % (40.0-51.0); HEMOGLOBIN 8.7 g/dL (13.6-17.8); IMMATURE GRANULOCYTES 0.3 %; IMMATURE GRANULOCYTES ABSOLUTE 0.01 10/3/uL (0.0-0.11); LYMPHOCYTES 16.3 %; LYMPHOCYTES ABSOLUTE 0.65 10/3/uL (0.67-4.30); MEAN CORPUS HGB CONC 31.8 g/dL (32.0-36.0); MEAN CORPUSCULAR HEMOGLOB 26.6 pg (26.0-34.0); MEAN CORPUSCULAR VOLUME 83.8 fL (80-100); MEAN PLATELET VOLUME 10.3 fL (9.2-13.0); MONOCYTES 16.8 %; MONOCYTES ABSOLUTE 0.67 10/3/uL (0.21-1.20); NEUTROPHILS 62.3 %; NEUTROPHILS ABSOLUTE 2.49 10/3/uL (2.02-8.40); PLATELET COUNT 93 10/3/uL (150-400); RBC DISTRIBUTION WIDTH 17.1 % (12.0-16.0); RED CELL COUNT 3.27 10/6/uL (4.7-6.1)
[2017-03-25 05:32] LABS: MANUAL DIFF NO %
[2017-03-25 05:41] LABS: CALCIUM, SERUM 8.9 MG/DL (8.5-10.4); CHLORIDE, SERUM 102 MMOL/L (96-112); CO2 (CARBON DIOXIDE) 29 MMOL/L (24-34); CREATININE 0.72 MG/DL (0.70-1.30); GFR AFRICAN AMERICAN 120 ML/MIN (>=60); GFR NON AFRICAN AMERICAN 104 ML/MIN (>=60); GLUCOSE, SERUM 120 MG/DL (60-99); SODIUM, SERUM 135 MMOL/L (135-148)
[2017-03-25 05:42] LABS: BUN (BLOOD UREA NITROGEN) 17 MG/DL (6-23)
[2017-03-25 09:14] LABS: HEMOGLOBIN 9.2 g/dL (13.6-17.8)
[2017-03-25] MEDS ORDERED: ELIQUIS 5 MG TAB5 MG PO (11:14)
[2017-03-25] MEDS ORDERED: PCET PO (11:15)
[2017-03-25] MEDS ORDERED: NEUR600 PO (11:15)
[2017-03-26 06:04] LABS: BASOPHILS 0.6 %; BASOPHILS ABSOLUTE 0.02 10/3/uL (0.0-0.16); EOSINOPHILS 3.5 %; EOSINOPHILS ABSOLUTE 0.12 10/3/uL (0.0-0.53); HEMATOCRIT 26.6 % (40.0-51.0); HEMOGLOBIN 8.6 g/dL (13.6-17.8); IMMATURE GRANULOCYTES 0.3 %; IMMATURE GRANULOCYTES ABSOLUTE 0.01 10/3/uL (0.0-0.11); LYMPHOCYTES 18.8 %; LYMPHOCYTES ABSOLUTE 0.64 10/3/uL (0.67-4.30); MEAN CORPUS HGB CONC 32.3 g/dL (32.0-36.0); MEAN CORPUSCULAR HEMOGLOB 26.8 pg (26.0-34.0); MEAN CORPUSCULAR VOLUME 82.9 fL (80-100); MEAN PLATELET VOLUME 10.7 fL (9.2-13.0); MONOCYTES 17.9 %; MONOCYTES ABSOLUTE 0.61 10/3/uL (0.21-1.20); NEUTROPHILS 58.9 %; PLATELET COUNT 114 10/3/uL (150-400); RBC DISTRIBUTION WIDTH 17.4 % (12.0-16.0); RED CELL COUNT 3.21 10/6/uL (4.7-6.1); WHITE BLOOD CELLS 3.4 10/3/uL (4.5-10.5)
[2017-03-26 06:06] LABS: MANUAL DIFF NO %
[2017-03-26 06:14] LABS: BUN (BLOOD UREA NITROGEN) 19 MG/DL (6-23); CHLORIDE, SERUM 104 MMOL/L (96-112); CO2 (CARBON DIOXIDE) 27 MMOL/L (24-34); CREATININE 0.67 MG/DL (0.70-1.30); GFR AFRICAN AMERICAN 124 ML/MIN (>=60); GFR NON AFRICAN AMERICAN 107 ML/MIN (>=60); GLUCOSE, SERUM 116 MG/DL (60-99); SODIUM, SERUM 139 MMOL/L (135-148)
[2017-03-26 06:33] LABS: ANISOCYTOSIS 1+ (5-10/OIF) (0-5/OIF); PLATELET ESTIMATE DEC (ADEQUATE)
== END 2017-03-26 13:22 | DRG 253 ==
LOC: ER 16:30 → 2SO 18:52 → CVICU 03-20 20:58 → 2SO 03-23 10:58
PROVIDERS: Emergency Medicine; Hospitalist; Internal Medicine; Nurse Practitioner Gerontology; Specialist
PROC: [UNRECOGNIZED PROCEDURE] (2017-03-20)
PROC: 30233N0 Transfusion of Autologous Red Blood Cells into Peripheral Vein, Percutaneous Approach (ICD-10-PCS; 2017-03-20)
PROC: 041L0ZN Bypass Left Femoral Artery to Posterior Tibial Artery, Open Approach (ICD-10-PCS; principal; 2017-03-20 15:45)
DX: T82.868A Thrombosis due to vascular prosthetic devices, implants and grafts, initial encounter (principal); D62 Acute posthemorrhagic anemia; D69.6 Thrombocytopenia, unspecified; K74.60 Unspecified cirrhosis of liver; Z89.611 Acquired absence of right leg above knee; J44.9 Chronic obstructive pulmonary disease, unspecified; F17.200 Nicotine dependence, unspecified, uncomplicated; I73.9 Peripheral vascular disease, unspecified; I25.10 Atherosclerotic heart disease of native coronary artery without angina pectoris; Z95.1 Presence of aortocoronary bypass graft; Z89.021 Acquired absence of right finger(s); Z88.8 Allergy status to other drugs, medicaments and biological substances; Z82.49 Family history of ischemic heart disease and other diseases of the circulatory system; Z80.8 Family history of malignant neoplasm of other organs or systems; Z79.02 Long term (current) use of antithrombotics/antiplatelets; Z79.899 Other long term (current) drug therapy
CPT/HCPCS: 36415; 71010; 80048; 80053; 82330; 82550; 82803; 82947; 83605; 83735; 83880; 84100; 84132; 84145; 84295; 84443; 84484; 85014; 85018; 85025; 85049; 85347; 85379; 85384; 85610; 85730; 86022; 86850; 86900; 86901; 86920; 87641; 93005; 93306; 93926; 94640; 96374; 96375; 96376; 97110-GP; 97116-GP; 97162-GP; 97164-GP; 97530-GP; 99283; 99285; A9270-GY; C1757; C1769; G8978-CL-GP; G8979-CK-GP; J0690; J1170; J2250; J2370; J2405; J2710; J3010; P9016; P9045; Q9966